=== PATIENT | female | born 1975 | race Caucasian/White ===

== ENCOUNTER 2016-07-07 10:03 | Day surgery (SDC) | payer BC ==
[~2016-07-07] VITALS: Ht 182.9 cm
[~2016-07-07 10:03] MED LIST: ACAI WEIGHT CO1 EACH PO; BACITRACIN OPH3.5 GM TP; BENADRYL-DPS25 MG PO; BISACODYL5 MG PO; CARAFATE1 GM/10 ML PO; COLACE-DPS100 MG PO; DILAUDID4 MG PO; EFFEXOR XR37.5 M1 PO; EPIPEN 2-P0.3 MG/0.3 IM; ESGIC 50-325-41 EACH PO; ESTRADIOL1 MG PO; FLEXERIL-DPS10 MG PO; HAIR, SKIN & N1 EAC2 PO; HYDRODIURIL-DPS25 MG PO; IMITREX DP6 MG/0.5 M SQ; IMITREX6 MG/0.5 M IM; LAXATIVE25 MG PO; LEXAPRO DPS20 MG PO; MIGRANAL1 ML NS; MOTRIN IB200 MG PO; NAPROXEN500 MG PO; NEURONTIN DPS600 MG PO; NICODERM CQ1 EAC1 TD; ONE DAILY WOME1 EAC1 PO; OXY IR DPS5 MG PO; PROTONIX40 MG PO; PROZAC DPS20 MG PO; SINEQUAN DPS100 MG PO; SONATA10 MG PO; SYNTHROID DPS0.1 MG PO; SYNTHROID100 MCG PO; TOPAMAX100 MG PO; TOPAMAX200 M1 PO; TOPAMAX200 MG PO; VALIUM-DPS5 MG PO; VIMPAT50 MG PO; VISTARIL-DPS50 MG PO; ZANAFLEX4 MG PO; ZOFRAN4 MG PO; ZOLOFT DPS100 MG PO; [UNRECOGNIZED DRUG - OTHER] PO; [UNRECOGNIZED DRUG - OTHER] PO
--- NOTE | 2016-07-08 08:02 | OR ---
ADMIT: 07/07/2016 RM/LOC: [facility] MR#: [id number] [address] [id number] SHAE NEELY [address] [place] [id number] Operative/Delivery Room Report SEX: F AGE: 40 : 1975 SURGERY DATE: 07/07/2016 SURGEON: Dennise Coles MD HEALTH PLAN SPECIALIST: None. PREPROCEDURE DIAGNOSES: 1. Lumbar disk degeneration. 2. Lumbosacral neuritis. POSTPROCEDURE DIAGNOSES: 1. Lumbar disk degeneration. 2. Lumbosacral neuritis. PROCEDURE PERFORMED: L5-S1 interlaminar epidural steroid injection. INDICATIONS FOR PROCEDURE: The patient is a pleasant female with history of chronic low back pain with radicular symptoms comes here today for planned lumbar epidural steroid injection. ANESTHESIA: Local without sedation. ESTIMATED BLOOD LOSS: Zero. COMPLICATIONS: None immediately evident. DESCRIPTION OF PROCEDURE: After the patient was seen in the preoperative area, vitals signs were taken. Prior to the procedure, the risks, benefits, and alternative therapies were discussed at length. Patient consent was obtained and updated. The patient was taken to the fluoroscopy suite and placed on the fluoroscopy table in the prone position. Pressure points were padded to comfort, monitors applied, and a timeout performed. Fluoroscopy was brought in. The patient was sterilely prepped and draped in the usual manner with ChloraPrep solution, and 1% lidocaine was used to anesthetize the appropriate needle entry site. Utilizing a midline approach, ADMIT: 07/07/2016 RM/LOC: [facility] MR#: [id number] [id number] [address] [place] [address] Operative/Delivery Room Report SEX: F AGE: 40 : 1975 continuous loss of resistance technique with preservative-free normal saline and intermittent fluoroscopic guidance, the posterior epidural space was easily entered. Once the epidural space had been entered through L5-S1. The patient was injected with 2 mL of Isovue-300 and outlining of the posterior epidural space was observed with no evidence of vascular uptake and intrathecal migration. Next, a solution consisting of 10 mL of preservative- free normal saline and 80 mg of Depo-Medrol was injected. The needle was withdrawn. The patient was escorted back to the preoperative area and observed for a period of time. PLAN: Discharge instructions were given, followup scheduled. 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 Dennise Coles MD/ lisset JOB #: [id number] CC: Dennise Coles, Attending Physician Crow Luke, Family Physician
== END 2016-07-07 11:00 | disposition home or self-care (01) ==
LOC: SSS 10:03
PROC: 3E0R33Z Introduction of Anti-inflammatory into Spinal Canal, Percutaneous Approach (ICD-10-PCS; principal; 2016-07-07)
DX: G89.29 Other chronic pain (principal); M51.17 Intervertebral disc disorders with radiculopathy, lumbosacral region; Z88.0 Allergy status to penicillin; Z88.1 Allergy status to other antibiotic agents; Z91.040 Latex allergy status; Z88.8 Allergy status to other drugs, medicaments and biological substances